=== PATIENT | female | born 2000 | race Caucasian/White ===

== ENCOUNTER 2021-02-06 20:37 | Emergency (ER) | payer OTHER, MEDICAID, SELFPAY ==
--- NOTE | 2021-02-06 20:49 | ED_ITS ---
HPI - Psych General Chief Complaint: Psychiatric Symptoms Stated Complaint: SI Time Seen by Provider: 02/06/21 20:42 History of Present Illness HPI Narrative: 20-year-old female smoker presents by EMS for evaluation of suicidal ideation. She had been texting the anonymous crisis line and had apparently mentioned that she wanted to herself at which point they activated police to check on her. She states that she has been having trouble with her boyfriend and that seems to have exacerbated today's symptoms. She is not clear with me what her plan would be but she states she feels much better just being here. She is otherwise well and free of complaint. She states that she is not currently under the care of a psychologist or psychiatrist. She does not have any medications prescribed. Related Data Allergies Allergy/AdvReac Type Severity Reaction Status Date / Time No Known Drug Allergies Allergy Verified 02/06/21 21:04 Review of Systems Review of Systems Narrative: GENERAL: Denies chills, fatigue, malaise, fever, sweats. HEENT: Denies sinus pain, ear pain, sore throat, difficulty swallowing, dizziness. RESPIRATORY: Denies dyspnea, cough, wheezing, hemoptysis, sputum. CARDIOVASCULAR: Denies chest pain, palpitations, orthopnea, edema, GASTROINTESTINAL: Denies nausea, vomiting, abdominal pain, diarrhea, cons tipation, melena. : Denies dysuria, frequency, incontinence, hematuria, urinary retention. MUSCULOSKELETAL: denies weakness, joint pain, or bony pain SKIN: Denies rash, skin lesions, or other NEUROLOGIC: Denies weakness, headache, numbness, change in speech, confusion, seizures, incoordination. PSYCHIATRIC: See HPI 12 point review of systems is negative except for those stated above Patient History Social History Smoking Status: Current some day smoker Exam Narrative Exam Narrative: GENERAL: [20] year old patient appears stated age. Well-de veloped patient, in mild distress. Good insight, good eye contact HEAD: Atraumatic. Normocephalic. EYES: Pupils equal round and reactive. Extraocular motions intact. No scleral icterus. No injection or drainage. ENT: Nose without bleeding, purulent drainage. Throat without erythema, tonsillar hypertrophy or exudate. Airway patent. NECK: Trachea midline. Non tender CARDIOVASCULAR: Regular rate and rhythm without murmurs, gallops, or rubs. RESPIRATORY: Clear to auscultation. Breath sounds equal bilaterally. No wheezes, rales, or rhonchi. GASTROINTESTINAL: Abdomen soft, non-tender, nondistended. EXTREMITIES: Superficial abrasion on the volar surface of left forearm, no wound consistent with need for sutures or other repair No edema or joint tenderness. BACK: Nontender without deformity or crepitance. No flank tenderness. NEURO: AOx3. SKIN: No rash or erythema of visible areas Initial Vital Signs Initial Vital Signs: Vital Signs Temperature 99.4 F 02/06/21 21:04 Pulse Rate 97 H 02/06/21 21:04 Respiratory Rate 14 02/06/21 21:04 Blood Pressure 139/75 02/06/21 21:04 Pulse Oximetry 95 02/06/21 21:04 Course Orders Ordered: ED Orders 02/06/21 20:47 EKG-12 Lead Stat 02/06/21 20:54 Urine Drug Screen, Rapid Stat 02/06/21 21:00 COVID19 -Nasal swab/Pre-Proc Stat 02/06/21 21:15 Complete Blood Count AUTO DIFF Stat Comprehensive Metabolic Panel Stat Ethanol (ETOH) Stat Discontinued Medications Acetaminophen (Acetaminophen 325 Mg Tablet) 650 mg PO NOW ONE Stop: 02/06/21 21:33 Last Admin: 02/06/21 21:40 Dose: 650 mg Documented by: JUAN Reevaluation(s) Reevaluation #1: Patient very quickly felt tremendous relief. She is awake, alert and oriented. She is speaking clearly without slurring her words and walks with a steady gait. She has capacity to make her own decisions and states that she feels much better and would prefer to go home. She is able to contract for safety, has a planned for safe lodging and understands that she may come back at any point. Vital Signs Vital signs: Vital Signs - 8 hr 02/06/21 21:04 02/06/21 22:01 Temperature 99.4 F Pulse Rate 97 H 85 Respiratory Rate 14 18 Blood Pressure 139/75 128/67 Pulse Oximetry 95 100 MDM - Psych Lab Data Result diagrams: 02/06/21 21:15 02/06/21 21:15 Labs: Lab Results 02/06/21 02/06/21 02/06/21 Range/Units 20:54 21:15 21:15 WBC 11.1 H (4.5-11.0) X10^3/uL RBC 4.41 (4.0-5.2) X10^6/uL Hgb 13.0 (12.0-16.0) g/dL Hct 39.2 (36-46) % MCV 89.0 (80-100) fL MCH 29.5 (26-34) PG MCHC 33.1 (30-36) % RDW 13.7 (11.6-14.8) % Plt Count 297 (150-400) X10^3/uL Neut % (Auto) 84.5 H (50-75) % Lymph % (Auto) 10.3 L (25-40) % Scurry % (Auto) 4.6 (3-14) % Eos % (Auto) 0.1 L (2-4) % Baso % (Auto) 0.5 (0-2) % Neut # (Auto) 9400 H (7682-7058) /uL Lymph # (Auto) 1100 (6461-9258) /uL Scurry # (Auto) 500 (0-900) /uL Eos # (Auto) 0 (0-450) /uL Baso # (Auto) 100 (0-100) /uL Sodium 137 (137-145) mmol/L Potassium 4.0 (3.4-5.1) mmol/L Chloride 101 (98-107) mmol/L Carbon Dioxide 28 (22-32) mmol/L BUN 14 (7-17) mg/dL Creatinine 0.77 (0.52-1.04) mg/dL Estimated GFR > 60.0 (>60) mL/min BUN/Creatinine Ratio 18.2 (6-22) Glucose 98 (70-100) mg/dL Calcium 9.6 (8.4-10.2) mg/dL Total Bilirubin 1.2 (0.2-1.3) mg/dL AST 26 (14-36) IU/L ALT 14 (<35) IU/L Alkaline Phosphatase 47 (38-126) U/L Total Protein 7.5 (6.3-8.2) g/dL Albumin 4.3 (3.5-5.0) g/dL Globulin 3.2 (1.7-4.1) g/dL Albumin/Globulin Ratio 1.3 (1.0-2.8) U Opiates 300ng/mL cut Positive H (Negative) Ur Oxycodone Screen Negative (Negative) Urine Methadone Screen Negative (Negative) Ur Barbiturates Screen Negative (Negative) U Tricyclic Antidepress Negative (Negative) Ur Phencyclidine Scrn Negative (Negative) Ur Amphetamines Screen Negative (Negative) U Methamphetamines Scrn Negative (Negative) Ur MDMA Scrn (Ecstasy) Negative (Negative) U Benzodiazepines Scrn Negative (Negative) Urine Cocaine Screen Negative (Negative) U Marijuana (THC) Screen Positive H (Negative) Ethyl Alcohol < 10 ( - 10) mg/dL Point of Care Testing Test Results Negative Urine Dip Bedside Urine Glucose Negative Bedside Urine Bilirubin - Negative Bedside Urine Ketone +/- 5 Urine Specific [place] 1.030 Bedside Urine Occult Blood +/- Bedside Urine pH 6.0 Bedside Urine Protein + 30 Bedside Urine Urobilinogen - Negative Bedside Urine Nitrite - Negative Bedside Urine Leukocytes - Negative Esterase Discharge Plan Departure Patient Disposition: Home Clinical Impression: Suicidal ideation Instructions: DI for Suicidal Ideation-Adult Activity Restrictions/Additional Instructions: *You have been diagnosed with [depression and suicidal ideation resolved] *What to do: *Please continue to take your regular medications as directed. [ ] New medication prescriptions sent to your pharmacy: [ ] [ ] New medication written as a paper prescription *If you feel that you are entering into mental health crisis you have multiple options 1. Return to the ER immediately 2. Call the Crisis Line at [phone] 3. Send an anonymous text by sending the word Gualberto to [phone] 4. Navigate your web browser to imagoo to engage in anonymous chat with a mental health worker Referrals: [facility] [Outside]
[2021-02-06 21:04] VITALS: BP 139/75; PULSE 97; RESP 14; TEMP 37.4; O2SAT 95; BMI 25.3
[2021-02-06 21:12] LABS: UR Morphine/Opiate cutoff 300 Positive (Negative); Ur Creatinine 100 (Normal); Ur Specific Gravity 1.025 (Normal); Urine Amphetamines Negative (Negative); Urine Barbiturates Negative (Negative); Urine Benzodiazepines Negative (Negative); Urine Cocaine Negative (Negative); Urine MDMA Negative (Negative); Urine Methadone Negative (Negative); Urine Methamphetamines Negative (Negative); Urine Oxycodone Negative (Negative); Urine Phencyclidine Negative (Negative); Urine Tetrahydrocannabinol Positive (Negative); Urine Tricyclic Antidepressant Negative (Negative); Urine pH 5 (Normal)
--- NOTE | 2021-02-06 21:13 | PC.NURSE ---
Pt given drinks,snacks and warm blanket
[2021-02-06 21:22] LABS: Add Manual Diff / Slide Review NO; Basophils Absolute Auto 100 /uL (0-100); Basophils Percent Auto 0.5 % (0-2); Eosinophils Absolute Auto 0 /uL (0-450); Eosinophils Percent Auto 0.1 % (2-4); Hematocrit 39.2 % (36-46); Lymphocytes Absolute Auto 1100 /uL (1100-4500); Lymphocytes Percent Auto 10.3 % (25-40); Mean Corpuscular HGB Conc 33.1 % (30-36); Mean Corpuscular Hemoglobin 29.5 PG (26-34); Monocytes Absolute Auto 500 /uL (0-900); Monocytes Percent Auto 4.6 % (3-14); Neutrophils Absolute Auto 9400 /uL (1500-7000); Neutrophils Percent Auto 84.5 % (50-75); Platelet Count 297 X10^3/uL (150-400); Red Blood Cell Count 4.41 X10^6/uL (4.0-5.2); Red Cell Distribution Width 13.7 % (11.6-14.8); White Blood Cell Count 11.1 X10^3/uL (4.5-11.0)
[2021-02-06 21:32] LABS: Alanine Aminotransferase 14 IU/L (<35); Albumin 4.3 g/dL (3.5-5.0); Albumin Globulin Ratio 1.3 (1.0-2.8); Alkaline Phosphatase 47 U/L (38-126); Aspartate Aminotransferase 26 IU/L (14-36); BUN Creatinine Ratio 18.2 (6-22); Bilirubin Total 1.2 mg/dL (0.2-1.3); Blood Urea Nitrogen 14 mg/dL (7-17); Calcium 9.6 mg/dL (8.4-10.2); Carbon Dioxide 28 mmol/L (22-32); Chloride 101 mmol/L (98-107); Estimated Glomerular Filt Rate > 60.0 mL/min (>60); Ethanol (ETOH) < 10 mg/dL; Globulin 3.2 g/dL (1.7-4.1); Glucose 98 mg/dL (70-100); HEMOLYSIS < 15 (0-50); Sodium 137 mmol/L (137-145); Total Protein 7.5 g/dL (6.3-8.2)
[2021-02-06] MEDS: ACETAMINOPHEN 325 MG TABLET 650 MG PO (21:40)
--- NOTE | 2021-02-06 21:53 | PC.NURSE ---
Sat and talked with pt about situation and current feelings. Pt states I know that I need to focus on me and bettering my life and that's what I want to do. Pt spoke about having an appointment with certified driver examiner and going back to school. Pt states she has family and friends that she can call for support. Also given crisis line number and counseling resource pamphlet.
[2021-02-06 22:01] VITALS: BP 128/67; PULSE 85; RESP 18; O2SAT 100
== END 2021-02-06 22:49 | disposition home or self-care (01) ==
LOC: ED 21:53
PROVIDERS: Emergency Provider Emergency Medicine
DX: R45.851 Suicidal ideations (principal)
CPT/HCPCS: 80053; 80305; 80320; 81003; 81025; 85025; 99283; 99284